=== PATIENT | female | born 1960 | race Caucasian/White ===

== ENCOUNTER 2018-07-26 05:53 | Day surgery (SDC) | payer MEDICARE, OTHER ==
[~2018-07-26] VITALS: Ht 149.9 cm; Wt 79.1 kg
[~2018-07-26 05:53] MED LIST: ASPI-1182 PO; BENA20 PO; CANA100T PO; CeFAZolin 2 GM/DEXTROSE 50 ML IV ONE; METF-960 PO; RINGERS SOLUTION,LACTATED 1,000 ML IV ONE; ROSU20 PO; SAXA5TAB PO
[2018-07-26] MEDS ORDERED: PROPOFOL 1% 20 ML VIAL IVP ONE (05:54)
[2018-07-26] MEDS ORDERED: MIDAZOLAM HCL 2 MG/2 ML VIAL IVP ONE (05:54)
[2018-07-26] MEDS ORDERED: EPHEDrine SULFATE 50 MG/ML VIAL IM ONE (05:54)
[2018-07-26] MEDS ORDERED: KETAMINE HCL 50 MG/ML 10 ML VIAL IVP ONE (05:54)
[2018-07-26] MEDS ORDERED: DEXAMETHASONE SOD PHOS 4 MG/ML VIAL IVP ONE (05:54)
[2018-07-26] MEDS ORDERED: LIDOCAINE/PF 2% 5 ML VIAL IM ONE (05:54)
[2018-07-26] MEDS ORDERED: ONDANSETRON HCL 4 MG/2 ML VIAL IVP ONE (05:54)
[2018-07-26] MEDS ORDERED: KETOROLAC TROMETHAMINE 60 MG/2 ML VIAL IM ONE (05:54)
[2018-07-26] MEDS ORDERED: RINGERS SOLUTION,LACTATED 1,000 ML IV ONE ×2 (06:00→08:29)
[2018-07-26 06:49] LABS: GLUCOMETER DEV NAME(LOC) SDS.; GLUCOSE,POINT OF CARE 114 MG/DL (70-110)
[2018-07-26] MEDS ORDERED: ACETAMINOPHEN 1000 MG/ISO-OSM 100 ML IV ONE (06:52)
[2018-07-26 06:55] LABS: PROTHROMBIN TIME 10.3 SEC (9.4-11.6)
[2018-07-26] MEDS ORDERED: BUPIVACAINE HCL/PF 0.5% 30 ML VIAL ONE (07:24)
[2018-07-26] MEDS ORDERED: LIDOCAINE 2%/EPI 1:200,000/PF 20 ML VIAL ONE (07:25)
[2018-07-26] MEDS ORDERED: CeFAZolin 2 GM/DEXTROSE 50 ML IV ONE (07:30)
[2018-07-26] MEDS ORDERED: MEPERIDINE-PF 25 MG/ML VIAL IVP PRN (08:30)
[2018-07-26] MEDS ORDERED: HYDROmorphone 2 MG/ML SYRINGE IVP PRN (08:30)
[2018-07-26] MEDS ORDERED: FentaNYL CITRATE-PF 100 MCG/2 ML VIAL IVP PRN (08:30)
[2018-07-26] MEDS ORDERED: ACETAMINOPHEN 500 MG TABLET PO PRN (09:15)
[2018-07-26] MEDS ORDERED: IBUPROFEN 800 MG TABLET PO PRN (09:15)
== END 2018-07-26 11:40 | disposition home or self-care (01) ==
LOC: SURGERY 05:53
PROVIDERS: ATTEND Surgery
DX: K42.0 Umbilical hernia with obstruction, without gangrene (principal); E11.9 Type 2 diabetes mellitus without complications; I10 Essential (primary) hypertension; E66.9 Obesity, unspecified; Z87.01 Personal history of pneumonia (recurrent); G47.33 Obstructive sleep apnea (adult) (pediatric); Z68.35 Body mass index [BMI] 35.0-35.9, adult; Z79.84 Long term (current) use of oral hypoglycemic drugs; Z79.82 Long term (current) use of aspirin; Z79.891 Long term (current) use of opiate analgesic; Z90.710 Acquired absence of both cervix and uterus; Z86.73 Personal history of transient ischemic attack (TIA), and cerebral infarction without residual deficits; Z90.49 Acquired absence of other specified parts of digestive tract; Z98.890 Other specified postprocedural states; Z79.899 Other long term (current) drug therapy; Z82.3 Family history of stroke; Z83.3 Family history of diabetes mellitus
CPT/HCPCS: 88302; 93005; J0131; J0690; J1100; J1885; J2250; J2405; J2704; J3490; J7120